=== PATIENT | female | born 1935 | race Caucasian/White ===

== ENCOUNTER 2019-06-09 23:12 | Outpatient (CLI) | payer MEDICARE | END 2019-06-09 23:13 | disposition critical access hospital (66) | LOC: EMS 23:12 | PROVIDERS: ATTEND Surgery | DX: R53.1 Weakness (principal); M54.5 Low back pain | CPT/HCPCS: A0425; A0429 ==

== ENCOUNTER 2019-06-09 23:18 | Emergency (ER) | payer MEDICARE ==
--- NOTE | 2019-06-09 23:47 | ED Physician Documentation ---
History of Present Illness - Stated complaint Stated Complaint: GLF/ BACK PAIN - Chief complaint Chief Complaint: Back Pain - History obtained from History obtained from: Patient, Family, Caregiver - History of Present Illness Timing: Prior to arrival Improved by: rest Worsened by: ambulation - Additonal information Additional information: generalized weakness tonight when ambulating to bathroom. she had a caregiver at her side and thus did not actually fall but was helped to ground when she became to weak to stand. she was unable to get back up due to weakness as well as LBP and pain in both hips; family says these pain c/o are not new. They note she also fell a few days ago and sustained abrasion to left knee. Review of Systems Unable to obtain: Confused Constitutional: denies: Fever Musculoskeletal: reports: Back pain, Joint pain (bilateral hips, left knee) Neurologic: reports: Generalized weakness. denies: Focal weakness, Numbness, Headache, Head injury PD PAST MEDICAL HISTORY - Past Medical History Past Medical History: No Cardiovascular: Hypertension, High cholesterol Respiratory: None Neuro: Alzhiemer's, Dementia Endocrine/Autoimmune: None GI: None, Diverticulitis COORDINATOR OF GENETIC SERVICES: None : None Psych: None Musculoskeletal: None Derm: None - Past Surgical History Past Surgical History: Yes General: Colonoscopy, Other Ortho: Knee replacement /COORDINATOR OF GENETIC SERVICES: Hysterectomy - Present Medications Home Medications: Ambulatory Orders Medication Instructions Recorded Confirmed Amiloride HCl 5 mg PO DAILY 06/09/19 06/09/19 Aspirin 81 mg PO DAILY 06/09/19 06/09/19 Cholecalciferol (Vitamin D3) 1,000 units PO DAILY 06/09/19 06/09/19 [Vitamin D3] Loperamide [Imodium] 2 mg PO DAILY 06/09/19 06/09/19 Loratadine [Claritin] 10 mg PO DAILY 06/09/19 06/09/19 Metoprolol Succinate/Hctz 25 mg PO DAILY 06/09/19 06/09/19 [Metoprolol ER-Hctz 25-12.5 mg] Naproxen 250 mg PO DAILY 06/09/19 06/09/19 Pantoprazole [Protonix] 40 mg PO DAILY 06/09/19 06/09/19 Rosuvastatin Calcium 40 mg PO DAILY 06/09/19 06/09/19 Solifenacin Succinate [Vesicare] 10 mg PO DAILY 06/09/19 06/09/19 Amoxicillin/Potassium Clav 500 mg PO BID 7 Days #140 ml 06/10/19 [Augmentin 250-62.5 mg/5 ml] - Allergies Allergies/Adverse Reactions: Allergies Allergy/AdvReac Type Severity Reaction Status Date / Time No Known Drug Allergies Allergy Verified 06/09/19 23:25 - Social History Does the pt smoke?: No Smoking Status: Never smoker Does the pt drink ETOH?: Yes Does the pt have substance abuse?: No - Immunizations Immunizations are current?: Yes - POLST Patient has POLST: No PD ED PE NORMAL - Vitals Vital signs reviewed: Yes - General General: No acute distress, Well developed/nourished, Other (awake, alert, oriented x 2) - HEENT HEENT: PERRL, EOMI - Neck Neck: Supple, no meningeal sign, No bony TTP - Cardiac Cardiac: RRR, No murmur - Respiratory Respiratory: No respiratory distress, Clear bilaterally - Abdomen Abdomen: Soft, Non tender - Derm Derm: Normal color, Warm and dry - Extremities Extremities: No edema, Other (mild swelling left knee with mild TTP, small superficial abrasion anteriorly over patella) - Neuro Neuro: hemodialysis charge nurse 2-12 intact, No motor deficit, No sensory deficit Eye Opening: Spontaneous Motor: Obeys Commands Verbal: Confused GCS Score: 14 Results - Vitals Vitals: Oxygen O2 Source Room air - Labs Labs: Microbiology 06/10/19 03:00 Urine Culture - Preliminary Urine,Catheterized Laboratory Tests 06/10/19 06/10/19 06/10/19 01:35 01:35 03:00 WBC 8.8 RBC 4.37 Hgb 13.0 Hct 40.0 MCV 91.5 MCH 29.7 MCHC 32.5 RDW 12.7 Plt Count 314 MPV 10.8 Neut # (Auto) 5.3 Lymph # (Auto) 2.2 [place] # (Auto) 1.1 H Eos # (Auto) 0.2 Baso # (Auto) 0.1 Absolute Nucleated RBC 0.00 Nucleated RBC % 0.0 Sodium 138 Potassium 3.8 Chloride 102 Carbon Dioxide 25 Anion Gap 11.0 BUN 23 H Creatinine 0.8 Estimated GFR (MDRD) 69 L Glucose 125 H Calcium 9.8 Total Bilirubin 0.2 AST 18 ALT 15 Alkaline Phosphatase 119 Total Protein 6.5 L Albumin 2.8 L Globulin 3.7 Albumin/Globulin Ratio 0.8 L Lipase 17 L Urine Color YELLOW Urine Clarity SL. CLOUDY Urine pH 5.5 Ur Specific [place] 1.020 Urine Protein 30 H Urine Glucose (UA) NEGATIVE Urine Ketones NEGATIVE Urine Occult Blood TRACE-INTA Urine Nitrite NEGATIVE Urine Bilirubin NEGATIVE Urine Urobilinogen 4 H Ur Leukocyte Esterase SMALL H Urine RBC 0-5 Urine WBC >25 H Ur Squamous Epith Cells RARE Squamous Urine Bacteria Many H Ur Microscopic Review INDICATED Urine Culture Comments INDICATED - Rads (name of study) left knee xrays Radiology: Prelim report reviewed, See rad report bilateral hip xrays Radiology: Prelim report reviewed, See rad report lumbar xrays Radiology: Prelim report reviewed, See rad report CT head Radiology: Prelim report reviewed, See rad report PD MEDICAL DECISION MAKING - ED course Complexity details: reviewed old records, reviewed results, re-evaluated patient, considered differential, d/w patient, d/w family Departure - Departure Disposition: Home, Self Care Clinical Impression: Urinary tract infection Qualifiers: Urinary tract infection type: acute cystitis Hematuria presence: without hematuria Qualified Code(s): N30.00 - Acute cystitis without hematuria Condition: Good Health Concerns: weakness, urinary tract infection Plan of Treatment: antibiotic as prescribed Care Goals: resolution of symptoms and elimination of urinary tract infection Assessment: see diagnoses Instructions: ED UTI Cystitis Female Follow-Up: Chris Hdez MD [Primary Care Provider] - Prescriptions: Amoxicillin/Potassium Clav [Augmentin 250-62.5 mg/5 ml] 500 mg PO BID 7 Days #140 ml Discharge Date/Time: 06/10/19 04:16
[2019-06-10 01:17] LABS: BASOPHILS # (AUTO) 0.1 10^3/uL (0.0-0.1); BASOPHILS % (AUTO) 0.7 %; EOSINOPHILS # (AUTO) 0.2 10^3/uL (0.0-0.7); LYMPHOCYTES # (AUTO) 2.2 10^3/uL (1.5-3.5); LYMPHOCYTES % (AUTO) 24.6 %; MEAN CORPUSCULAR HEMOGLOBIN 29.7 pg (27.0-31.0); MEAN CORPUSCULAR HGB CONC 32.5 g/dL (32.0-36.0); MEAN CORPUSCULAR VOLUME 91.5 fL (81.0-99.0); MEAN PLATELET VOLUME 10.8 fL (7.9-10.8); MONOCYTES # (AUTO) 1.1 10^3/uL (0.0-1.0); NEUTROPHILS # (AUTO) 5.3 10^3/uL (1.5-6.6); NEUTROPHILS % (AUTO) 60.2 %; PLT - PLATELET COUNT 314 10^3/uL (130-450); RED BLOOD COUNT 4.37 10^6/uL (4.20-5.40); RED CELL DISTRIBUTION WIDTH 12.7 % (12.0-15.0); WHITE BLOOD COUNT 8.8 x10^3/uL (4.8-10.8)
--- NOTE | 2019-06-10 01:18 | CT Report ---
Reason: fall, weakness Procedure Date: 06/10/2019 Accession Number: [id number] / [id number] Procedure: CT - HEAD WO CPT Code: FULL RESULT: EXAM: CT HEAD EXAM DATE: 06/10/2019 12:35 AM. CLINICAL HISTORY: Fall, weakness. COMPARISON: None. TECHNIQUE: Multiaxial CT images were obtained from the foramen magnum to the vertex. Reformats: Sagittal and coronal. IV contrast: None. In accordance with CT protocol optimization, one or more of the following dose reduction techniques were utilized for this exam: automated exposure control, adjustment of mA and/or KV based on patient size, or use of iterative reconstructive technique. FINDINGS: Parenchyma: No intraparenchymal hemorrhage. No evidence of mass, midline shift, or CT findings of infarction. Brewer-white differentiation is distinct. Mild periventricular hypodensity is noted, nonspecific but most likely due to chronic microvascular ischemia. Extraaxial Spaces: Mildly prominent. No subdural or epidural collections identified. Ventricles: The ventricles are mildly prominent consistent with diffuse atrophy. No evidence of hydrocephalus. Sinuses and Orbits: Imaged paranasal sinuses, orbits, and mastoids show no significant abnormality. Changes of cataract extraction are noted bilaterally. Bones: No evidence of fracture or calvarial defect. Other: Mild vascular calcification is visualized in the cavernous segments of the bilateral ICAs.. IMPRESSION: 1. No evidence of acute traumatic injury or other acute intracranial pathology. 2. Mild white matter changes typical of chronic microvascular ischemia. 3. Mild diffuse atrophy. RADIA
--- NOTE | 2019-06-10 01:28 | XRAY Report ---
Reason: fall, pain Procedure Date: 06/10/2019 Accession Number: [id number] / [id number] Procedure: XR - Hips 3-4V BILAT CPT Code: FULL RESULT: EXAM: BILATERAL HIP RADIOGRAPHY EXAM DATE: 06/10/2019 12:39 AM. CLINICAL HISTORY: Fall, pain. COMPARISON: None. TECHNIQUE: 2 views. FINDINGS: Bones: Normal. No fractures or bone lesion. Joints: Mild osteoarthritis. No dislocation. Soft Tissues: Vascular calcifications. IMPRESSION: Mild osteoarthritis. No evidence of acute fracture. RADIA
--- NOTE | 2019-06-10 01:42 | XRAY Report ---
Reason: fall, pain Procedure Date: 06/10/2019 Accession Number: [id number] / [id number] Procedure: XR - Lumbar Spine 2 View CPT Code: FULL RESULT: EXAM: LUMBOSACRAL SPINE RADIOGRAPHY EXAM DATE: 06/10/2019 01:07 AM. CLINICAL HISTORY: Fall, pain. COMPARISONS: None. TECHNIQUE: 2 views. FINDINGS: Alignment: There is mild right convex scoliosis. No definite subluxation. Bones: Five nao-[id number]-hyeqnsr lumbar vertebral bodies are present. Old appearing severe anterior compression fracture of T12 vertebral body. Partial fusion of T11 and T12 as well as the superior portion of L1. No definite acute fracture. However, bones are at least moderately osteopenic. This reduces exam sensitivity and specificity for detection of subtle bony lesions and/or fractures. Sacrum is obscured by overlying gas and fecal matter. Disks: Multilevel disk space height loss as well as endplate osteophytosis. Facets: Severe lower lumbar facet arthropathy is noted. Sacroiliac Joints: No definite diastasis. Soft Tissues: Average to moderate retained colonic fecal matter. IMPRESSION: 1. No definite acute bone abnormality. However, bones are at least moderately osteopenic. This reduces exam sensitivity and specificity for detection of subtle bony lesions and/or fractures. 2. There is a severe old appearing T12 compression fracture. RADIA
--- NOTE | 2019-06-10 01:56 | XRAY Report ---
Reason: fall, injury Procedure Date: 06/10/2019 Accession Number: [id number] / [id number] Procedure: XR - Knee 4 View LT CPT Code: FULL RESULT: EXAM: LEFT KNEE RADIOGRAPHY EXAM DATE: 06/10/2019 01:07 AM. CLINICAL HISTORY: Fall, injury. COMPARISON: None. TECHNIQUE: 3 views. FINDINGS: Bones: There is a total knee prosthesis in position. No evidence of periprosthesis lucency. Bones are moderately osteopenic. No definite acute displaced fracture or suspicious bone lesion. Joints: No dislocation. Soft Tissues: No significant soft tissue swelling. IMPRESSION: Total knee prosthesis without evidence of complications. No acute bone abnormality demonstrated. RADIA
[2019-06-10 01:59] LABS: ALBUMIN 2.8 g/dL (3.2-5.5); ALBUMIN/GLOBULIN RATIO 0.8 (1.0-2.2); BILIRUBIN,TOTAL 0.2 mg/dL (0.2-1.0); CALCIUM 9.8 mg/dL (8.5-10.3); CREATININE 0.8 mg/dL (0.4-1.0); TOTAL PROTEIN 6.5 g/dL (6.7-8.2)
[2019-06-10 03:25] LABS: BILIRUBIN,URINE NEGATIVE (NEGATIVE); GLUCOSE, URINE (UA) NEGATIVE (NEGATIVE); KETONES,URINE (UA) NEGATIVE (NEGATIVE); LEUKOCYTE ESTERASE, URINE SMALL (NEGATIVE); NITRITE,URINE NEGATIVE (NEGATIVE); OCCULT BLOOD,URINE TRACE-INTA (NEGATIVE); PH,URINE 5.5 PH (5.0-7.5); PROTEIN,URINE 30 mg/dL (NEGATIVE); UROBILINOGEN,URINE 4 E.U./dL (NORMAL)
[2019-06-10 03:35] LABS: BACTERIA,URINE Many /HPF (None Seen); CLARITY,URINE SL. CLOUDY (CLEAR); RBC,URINE 0-5 /HPF (0-5); SQUAMOUS EPITHELIAL CELL,UR RARE Squamous (<= Few)
[2019-06-10 03:48] VITALS: BP 135/68
[2019-06-10] MEDS ORDERED: AMOX/CLAV 875 MG/125 MG TABLET PO STA (03:57)
== END 2019-06-10 04:16 | disposition home or self-care (01) ==
LOC: ED 23:18
DX: N30.00 Acute cystitis without hematuria (principal); R53.1 Weakness; S80.212A Abrasion, left knee, initial encounter; W19.XXXA Unspecified fall, initial encounter; M16.0 Bilateral primary osteoarthritis of hip; M54.5 Low back pain; M85.88 Other specified disorders of bone density and structure, other site; I10 Essential (primary) hypertension; G30.9 Alzheimer's disease, unspecified; F02.80 Dementia in other diseases classified elsewhere, unspecified severity, without behavioral disturbance, psychotic disturbance, mood disturbance, and anxiety; Z79.82 Long term (current) use of aspirin; Z96.652 Presence of left artificial knee joint
CPT/HCPCS: 36415; 51701; 70450; 72100; 73522; 73564; 80053; 81001; 83690; 85025; 87086; 87181; 99284; A9270; 81003

== ENCOUNTER 2019-10-02 13:04 | Emergency (ER) | payer MEDICARE ==
[2019-10-02 14:17] LABS: BASOPHILS % (AUTO) 0.6 %; EOSINOPHILS # (AUTO) 0.2 10^3/uL (0.0-0.7); EOSINOPHILS % (AUTO) 2.3 %; HGB - HEMOGLOBIN 14.6 g/dL (12.0-16.0); LYMPHOCYTES # (AUTO) 2.2 10^3/uL (1.5-3.5); LYMPHOCYTES % (AUTO) 30.8 %; MEAN CORPUSCULAR HEMOGLOBIN 29.1 pg (27.0-31.0); MEAN CORPUSCULAR HGB CONC 32.4 g/dL (32.0-36.0); MEAN CORPUSCULAR VOLUME 89.8 fL (81.0-99.0); MEAN PLATELET VOLUME 11.4 fL (7.9-10.8); MONOCYTES # (AUTO) 0.6 10^3/uL (0.0-1.0); MONOCYTES % (AUTO) 8.9 %; NEUTROPHILS % (AUTO) 56.8 %; PLT - PLATELET COUNT 193 10^3/uL (130-450); RED BLOOD COUNT 5.02 10^6/uL (4.20-5.40); RED CELL DISTRIBUTION WIDTH 13.7 % (12.0-15.0); WHITE BLOOD COUNT 7.1 x10^3/uL (4.8-10.8)
--- NOTE | 2019-10-02 14:26 | XRAY Report ---
Reason: chest/back pain Procedure Date: 10/02/2019 Accession Number: [id number] / [id number] Procedure: XR - Chest 2 View X-Ray CPT Code: 08315 Final Report FULL RESULT: EXAM: CHEST RADIOGRAPHY EXAM DATE: 10/02/2019 01:42 PM. CLINICAL HISTORY: Chest/back pain. COMPARISON: None. TECHNIQUE: 2 views. FINDINGS: Lungs/Pleura: No focal opacities evident. No edema or pulmonary vascular congestion. No pleural effusion. No pneumothorax. Normal volumes. Mediastinum: Heart size is normal. Minimal aortic arch calcification. Minimal descending thoracic aortic tortuosity. Other: Minimal diffuse idiopathic skeletal hyperostosis in the lower thoracic spine. IMPRESSION: Negative chest. No clear findings to explain pain. RADIA
[2019-10-02 14:36] LABS: ALBUMIN 3.8 g/dL (3.2-5.5); ALBUMIN/GLOBULIN RATIO 1.3 (1.0-2.2); BILIRUBIN,TOTAL 0.6 mg/dL (0.2-1.0); CREATININE 0.5 mg/dL (0.4-1.0); TOTAL PROTEIN 6.7 g/dL (6.7-8.2)
--- NOTE | 2019-10-02 15:10 | ED Physician Documentation ---
PD HPI CHEST PAIN - Stated complaint Stated Complaint: ABNORMAL EKG READING DR STEVE OFFICE - Chief complaint Chief Complaint: Cardiac - History obtained from History obtained from: Patient, Family - History of Present Illness Timing - onset: Other (This is an 84-year-old woman who presents by private vehicle with her daughter from [facility] for concern for a coronary equivalent. She has chronic back pain and says is a little worse today and the daughter notes some mild confusion consistent with prior UTIs. The patient denies any chest pain. They noted in the office that she had inferior Q waves and occasional PVCs.) Review of Systems Unable to obtain: Dementia PD PAST MEDICAL HISTORY - Past Medical History Cardiovascular: Hypertension, High cholesterol Respiratory: None Neuro: Alzhiemer's, Dementia Endocrine/Autoimmune: None GI: None, Diverticulitis DRILL PRESS OPERATOR FOR METAL: None : None Psych: None Musculoskeletal: None Derm: None - Past Surgical History Past Surgical History: Yes General: Colonoscopy, Other Ortho: Knee replacement /DRILL PRESS OPERATOR FOR METAL: Hysterectomy - Present Medications Home Medications: Ambulatory Orders Medication Instructions Recorded Confirmed Amiloride HCl 5 mg PO DAILY 06/09/19 06/09/19 Aspirin 81 mg PO DAILY 06/09/19 06/09/19 Cholecalciferol (Vitamin D3) 1,000 units PO DAILY 06/09/19 06/09/19 [Vitamin D3] Loperamide [Imodium] 2 mg PO DAILY 06/09/19 06/09/19 Loratadine [Claritin] 10 mg PO DAILY 06/09/19 06/09/19 Metoprolol Succinate/Hctz 25 mg PO DAILY 06/09/19 06/09/19 [Metoprolol ER-Hctz 25-12.5 mg] Naproxen 250 mg PO DAILY 06/09/19 06/09/19 Pantoprazole [Protonix] 40 mg PO DAILY 06/09/19 06/09/19 Rosuvastatin Calcium 40 mg PO DAILY 06/09/19 06/09/19 Solifenacin Succinate [Vesicare] 10 mg PO DAILY 06/09/19 06/09/19 Amoxicillin/Potassium Clav 500 mg PO BID 7 Days #140 ml 06/10/19 [Augmentin 250-62.5 mg/5 ml] Ciprofloxacin [Cipro] 250 mg PO Q12H #6 tablet 10/02/19 - Allergies Allergies/Adverse Reactions: Allergies Allergy/AdvReac Type Severity Reaction Status Date / Time No Known Drug Allergies Allergy Verified 06/09/19 23:25 - Social History Does the pt smoke?: No Smoking Status: Never smoker Does the pt drink ETOH?: Yes Does the pt have substance abuse?: No - Immunizations Immunizations are current?: Yes - POLST Patient has POLST: No PD ED PE NORMAL - Vitals Vital signs reviewed: Yes - General General: Other (She is alert and oriented to person and place but not time. She is cooperative.) - HEENT HEENT: PERRL, EOMI - Neck Neck: Supple, no meningeal sign, No bony TTP - Cardiac Cardiac: RRR, No murmur - Respiratory Respiratory: No respiratory distress, Clear bilaterally - Abdomen Abdomen: Non tender - Back Back: Other (She has muscular tenderness of the left thoracic back) - Neuro Neuro: No motor deficit, No sensory deficit Results - Vitals Vitals: Vital Signs - 24 hr 10/02/19 10/02/19 13:16 14:26 Temperature 36.5 C Heart Rate 66 71 Respiratory 18 19 Rate Blood Pressure 148/62 H 139/79 H O2 Saturation 98 98 Oxygen O2 Source Room air - EKG (time done) 1332 Rate: Rate (enter#) (65) Rhythm: NSR [place]: Normal Intervals: Normal [place] Ischemia: Q waves (Inferior) Computer interpretation: Agree with computer - Labs Labs: Laboratory Tests 10/02/19 10/02/19 10/02/19 14:13 14:13 14:13 WBC 7.1 RBC 5.02 Hgb 14.6 Hct 45.1 MCV 89.8 MCH 29.1 MCHC 32.4 RDW 13.7 Plt Count 193 MPV 11.4 H Neut # (Auto) 4.0 Lymph # (Auto) 2.2 [place] # (Auto) 0.6 Eos # (Auto) 0.2 Baso # (Auto) 0.0 Absolute Nucleated RBC 0.00 Nucleated RBC % 0.0 Sodium 142 Potassium 3.9 Chloride 107 Carbon Dioxide 27 Anion Gap 8.0 BUN 22 H Creatinine 0.5 Estimated GFR (MDRD) 118 Glucose 112 H Calcium 10.0 Total Bilirubin 0.6 AST 18 ALT 14 Alkaline Phosphatase 146 H Troponin I High Sens 5.9 Total Protein 6.7 Albumin 3.8 Globulin 2.9 Albumin/Globulin Ratio 1.3 Lipase 18 L Urine Color Urine Clarity Urine pH Ur Specific [place] Urine Protein Urine Glucose (UA) Urine Ketones Urine Occult Blood Urine Nitrite Urine Bilirubin Urine Urobilinogen Ur Leukocyte Esterase Urine RBC Urine WBC Ur Squamous Epith Cells Urine Crystals Urine Bacteria Ur Microscopic Review Urine Culture Comments 10/02/19 15:31 WBC RBC Hgb Hct MCV MCH MCHC RDW Plt Count MPV Neut # (Auto) Lymph # (Auto) [place] # (Auto) Eos # (Auto) Baso # (Auto) Absolute Nucleated RBC Nucleated RBC % Sodium Potassium Chloride Carbon Dioxide Anion Gap BUN Creatinine Estimated GFR (MDRD) Glucose Calcium Total Bilirubin AST ALT Alkaline Phosphatase Troponin I High Sens Total Protein Albumin Globulin Albumin/Globulin Ratio Lipase Urine Color YELLOW Urine Clarity HAZY Urine pH 6.0 Ur Specific [place] 1.020 Urine Protein NEGATIVE Urine Glucose (UA) NEGATIVE Urine Ketones NEGATIVE Urine Occult Blood TRACE-INTA Urine Nitrite NEGATIVE Urine Bilirubin NEGATIVE Urine Urobilinogen 2 H Ur Leukocyte Esterase SMALL H Urine RBC 0-5 Urine WBC 6-10 H Ur Squamous Epith Cells FEW Squamous Urine Crystals 6-10 Calcium Oxalate Urine Bacteria Rare Ur Microscopic Review INDICATED Urine Culture Comments INDICATED PD MEDICAL DECISION MAKING - ED course ED course: This is an 84-year-old woman presents by private vehicle coming by her daughter. Her major concern is potentially for UTI. She has chronic back pain and the concern in the office was this was a coronary equivalent, but testing today suggested is not. Departure - Departure Disposition: 01 Home, Self Care Clinical Impression: Urinary tract infection Qualifiers: Urinary tract infection type: acute cystitis Hematuria presence: without hematuria Qualified Code(s): N30.00 - Acute cystitis without hematuria Back pain Qualifiers: Back pain location: thoracic back pain Chronicity: chronic Back pain laterality: unspecified Qualified Code(s): M54.6 - Pain in thoracic spine; G89.29 - Other chronic pain Condition: Good Record reviewed to determine appropriate education?: Yes Instructions: ED UTI Cystitis Female Prescriptions: Ciprofloxacin [Cipro] 250 mg PO Q12H #6 tablet Comments: We will culture your urine, the results should be done in 48-72 hours. If an antibiotic change is necessary we will call you. Return if worse in the meantime, especially if you develop increasing flank pain, fevers, or cannot keep down the medication.
[2019-10-02 15:42] LABS: BILIRUBIN,URINE NEGATIVE (NEGATIVE); GLUCOSE, URINE (UA) NEGATIVE (NEGATIVE); KETONES,URINE (UA) NEGATIVE (NEGATIVE); LEUKOCYTE ESTERASE, URINE SMALL (NEGATIVE); NITRITE,URINE NEGATIVE (NEGATIVE); OCCULT BLOOD,URINE TRACE-INTA (NEGATIVE); PROTEIN,URINE NEGATIVE (NEGATIVE); UROBILINOGEN,URINE 2 E.U./dL (NORMAL)
[2019-10-02 15:47] LABS: CLARITY,URINE HAZY (CLEAR)
[2019-10-02 16:02] LABS: BACTERIA,URINE Rare /HPF (None Seen); RBC,URINE 0-5 /HPF (0-5); SQUAMOUS EPITHELIAL CELL,UR FEW Squamous (<= Few)
[2019-10-02 16:03] LABS: CRYSTALS,URINE 6-10 Calcium Oxalate /LPF
[2019-10-02] MEDS ORDERED: CIPROFLOXACIN 250 MG TABLET PO STA (16:11)
[2019-10-02 16:18] VITALS: BP 115/88
== END 2019-10-02 17:11 | disposition home or self-care (01) ==
LOC: ED 13:04
DX: N30.00 Acute cystitis without hematuria (principal); M54.6 Pain in thoracic spine; G89.29 Other chronic pain; I10 Essential (primary) hypertension; G30.9 Alzheimer's disease, unspecified; F02.80 Dementia in other diseases classified elsewhere, unspecified severity, without behavioral disturbance, psychotic disturbance, mood disturbance, and anxiety; Z79.82 Long term (current) use of aspirin
CPT/HCPCS: 36415; 71046; 80053; 81001; 83690; 84484; 85025; 87086; 93005; 99281; 99283; A9270; 81003

== ENCOUNTER 2021-03-09 11:52 | Outpatient (CLI) | payer MEDICARE ==
--- NOTE | 2021-03-09 14:26 | CT Report ---
PROCEDURE: Abdomen/Pelvis WO INDICATIONS: ELEVATED FERRITIN, RISING ALK PHOS TECHNIQUE: Noncontrast 5 mm thick sections acquired from the diaphragms to the symphysis. 5 mm coronal and sagi ttal reformats were then performed. For radiation dose reduction, the following was used: automated exposure control, adjustment of mA and/or kV according to patient size. COMPARISON: None. FINDINGS: Image quality: Limited by absence of both oral and intravenous contrast.. ABDOMEN: Lung bases: Lung bases are clear. Heart size is normal. Solid organs: Liver and spleen are normal in size. Gallbladder contains at least 2 centrally radiol ucent stones, but there is no sign of acute cholecystitis or biliary obstruction. Pancreas is normal in contours. No adrenal nodules. Kidneys are normal in size, with mild to moderate right-sided hyd ronephrosis and with nephrolithiasis on the left measuring between 1 and 2 mm. Within the far distal right ureter is a ureteral stone measuring approximately 2.5 mm.. Peritoneum and bowel: Unenhanced bowel loops demonstrate normal wall thickness and caliber. No free fluid or air. Nodes and vessels: No retroperitoneal or mesenteric adenopathy by size criteria. Aorta and inferior vena cava are normal in caliber. Miscellaneous: No ventral hernias. PELVIS: Genitourinary: Bladder wall thickness is normal. Miscellaneous: No inguinal hernias or adenopathy. Bones: No suspicious bony lesions. No vertebral body compression fractures. IMPRESSION: The liver appears normal but the quality of visualization is limited by both absence of oral and intr avenous contrast. No ascites or varices are found. A liver mass lesion is not seen. There is an unexpected finding of mild asymmetric hydronephrosis on the right, associated with a far distal right ureteral stone at the ureteral orifice just within the bladder lumen. This stone is cons idered an incidental finding but produces chronic hydronephrosis. Urology consultation likely is liz anted. Within the left-sided collecting system and several scattered nonobstructing calculi are present rang ing in size from 1 mm to 2 mm. Reviewed by: Catrachito Bernal MD on 03/09/2021 2:25 PM PDT Approved by: Catrachito Bernal MD on 03/09/2021 2:25 PM PDT Station ID: [id number]
== END 2021-03-09 11:53 | disposition home or self-care (01) ==
LOC: DI 11:52
PROVIDERS: ATTEND Physician Assistant
DX: N13.2 Hydronephrosis with renal and ureteral calculous obstruction (principal)